=== PATIENT | female | born 1970 | race Two or more races ===

== ENCOUNTER 2025-03-04 08:33 | Outpatient (CLI) | payer MEDICARE, MEDICAID | END 2025-03-04 23:59 | disposition home or self-care (01) | LOC: RAD 08:33 | PROVIDERS: ATTEND Nurse Practitioner Family | DX: R10.9 Unspecified abdominal pain (principal); Z90.49 Acquired absence of other specified parts of digestive tract | CPT/HCPCS: 71046; 76700 ==